=== PATIENT | male | born 1985 | race Hispanic/Latino ===

== ENCOUNTER 2024-12-29 09:45 | Emergency (ER) | payer OTHER ==
[~2024-12-29] VITALS: Ht 175.3 cm; Wt 106.6 kg
[2024-12-29 10:00] VITALS: TEMP 98.8
[2024-12-29 10:41] LABS: BASOPHILS % 0.4 % (0.0-1.0); EOSINOPHILS % 0.4 % (0.0-6.0); LYMPHOCYTES % 21.5 % (18.0-39.1); MONOCYTES % 12.7 % (4.4-11.3); NEUTROPHILS % 64.8 % (38.7-80.0); RED CELL DISTRIBUTION WIDTH 11.7 % (11.7-14.4)
[2024-12-29] MEDS: Morphine 4mg INJECTION 4 MG/ML INJ IV ONE (10:59)
[2024-12-29] MEDS: SODIUM CHLORIDE 0.9% 1000ML 1,000 ML IV ONE (10:59)
[2024-12-29] MEDS: ONDANSETRON HCL INJ 2MG/ML 2ML 2 MG/ML VIAL IV STA (10:59)
[2024-12-29 11:10] LABS: EST GLOMERULAR FILTRATION RATE 96.0 ML/MIN (>=60)
[2024-12-29 12:30] VITALS: PULSE 68; RESP 18
[2024-12-29 13:03] LABS: EPITHELIAL CELLS,URINE FEW /LPF; LEUKOCYTE ESTERASE ,URINE NEGATIVE (NEGATIVE); PROTEIN,URINE DIPSTICK NEGATIVE (NEGATIVE); URINE UROBILINOGEN 0.2 mg/dL (0.2 - 1); WBC,URINE (MAN) 0-5 /HPF (0-5)
[2024-12-29] MEDS ORDERED: HYDROCODON-ACE1 EA11 PO (13:48)
[2024-12-29] MEDS ORDERED: METRONIDAZOLE500 MG PO (13:48)
[2024-12-29] MEDS ORDERED: CIPRO500 MG PO (13:48)
[2024-12-29] MEDS ORDERED: ONDANSETRON ODT4 MG PO (13:48)
[2024-12-29] MEDS ORDERED: IOPAMIDOL 370 MG/ML 100 ML INFUS..BTL INJ ONE (13:57)
[2024-12-29 14:13] VITALS: BP 124/81; PULSE 69; RESP 16; O2SAT 100
== END 2024-12-29 14:10 | disposition home or self-care (01) ==
LOC: ER 10:10 → EDSEX 10:10 → ER 14:10
DX: R11.2 Nausea with vomiting, unspecified (principal); K52.9 Noninfective gastroenteritis and colitis, unspecified; R10.30 Lower abdominal pain, unspecified; F41.9 Anxiety disorder, unspecified; F43.10 Post-traumatic stress disorder, unspecified
CPT/HCPCS: 36415; 74177; 80053; 81001; 83690; 85025; 99284; J2270; J2405; J7030; Q9967